=== PATIENT | female | born 1995 | race Two or more races ===

== ENCOUNTER 2018-08-13 14:59 | Emergency (ER) | payer MEDICAID, OTHER ==
[~2018-08-13] VITALS: Ht 170.2 cm; Wt 81.6 kg
[2018-08-13 15:13] VITALS: BP 122/78
== END 2018-08-13 16:03 | disposition home or self-care (01) ==
LOC: ER 15:02
DX: F41.9 Anxiety disorder, unspecified (principal); Z76.0 Encounter for issue of repeat prescription